=== PATIENT | male | born 1975 | race Two or more races ===

== ENCOUNTER 2020-04-08 12:21 | Inpatient (IN) | payer MEDICAID, OTHER ==
[~2020-04-08] VITALS: Ht 165.1 cm; Wt 108.5 kg
[2020-04-08] MEDS ORDERED: CLOPIDOGREL BISULFATE 75 MG TAB PO ONE (12:45)
[2020-04-08] MEDS ORDERED: HEPARIN SODIUM (PORCINE) 5000 UNITS/ML 1ML VIAL IV ONE (12:45)
[2020-04-08] MEDS ORDERED: IODIXANOL 320MG/ML 100ML BTL IV ONE (12:48)
[2020-04-08] MEDS ORDERED: HEPARIN IN NS 1000Units/500mL 1,500 ML ONE (12:48)
[2020-04-08] MEDS ORDERED: LIDOCAINE 2%HCL (LOCAL ANESTH.) INJ 20ML MDV ONE (12:49)
[2020-04-08] MEDS ORDERED: ANGIOMAX 250 MG VIAL IV ONE ×2 (12:50→13:53)
[2020-04-08] MEDS ORDERED: ADENOSINE 6 MG/2 ML INJ IV ONE (12:50)
[2020-04-08] MEDS ORDERED: niCARdipine 25 MG/10 ML VIAL IV ONE (12:50)
[2020-04-08] MEDS ORDERED: MIDAZOLAM HCL 1MG/1ML-2 ML VIAL ONE (12:50)
[2020-04-08] MEDS ORDERED: fentaNYL CITRATE 100 MCG/2 ML VL ONE (12:50)
[2020-04-08] MEDS ORDERED: SODIUM CHL 0.9% 50 ML ONE ×2 (12:51→13:53)
[2020-04-08 13:10] LABS: Basophils # (auto) 0.1 10 ^3/uL (0-0.2); Basophils % (auto) 0.5 % (0.0-2.0); Eosinophils # (auto) 0.1 10 ^3/uL (0-0.8); Eosinophils % (auto) 0.4 % (0.0-7.0); Hematocrit 43.7 % (41.0-53.0); Hemoglobin 14.6 g/dL (13.5-17.5); Lymphocytes # (auto) 2.1 10 ^3/uL (0.4-5.4); Lymphocytes % (auto) 14.7 % (10.0-50.0); Mean Corpuscular Hemoglobin 27.6 pg (28.0-32.0); Mean Corpuscular Hgb Conc. 33.4 g/dL (32.0-36.0); Mean Corpuscular Volume 82.8 fL (80.0-100.0); Monocytes # (auto) 0.8 10 ^3/uL (0-1.3); Monocytes % (auto) 5.4 % (0.0-12.0); Neutrophils # (auto) 11.5 10 ^3/uL (1.6-8.6); Platelet Count (auto) 308 10^3/uL (140-450); Red Blood Cells 5.28 10^6/uL (4.5-5.90); Red Cell Distribution Width 14.5 % (11.8-14.3); White Blood Cell 14.5 10^3/uL (4.4-10.8)
[2020-04-08] MEDS ORDERED: MORPHINE SULFATE 4 MG/ML SYR/VIAL ONE (13:18)
[2020-04-08] MEDS ORDERED: ONDANSETRON HCL 4 MG/2 ML VIAL ONE (13:18)
[2020-04-08] MEDS ORDERED: EPTIFIBATIDE INJ (2MG/ML) 10ML VIAL IV ONE (13:26)
[2020-04-08 13:28] LABS: Albumin 3.7 g/dL (3.4-5.0); Calcium 8.3 mg/dL (8.5-10.1); Magnesium 2.3 mg/dL (1.6-2.6)
[2020-04-08 13:29] LABS: INR 0.97 (0.9-1.15); Partial Thromboplastin Time 23.1 sec (23.0-31.2)
[2020-04-08] MEDS ORDERED: ATROPINE SULF 1 MG/10ml SYR ONE (13:29)
[2020-04-08] MEDS ORDERED: EPINEPHrine HCL 1 MG/10 ML SYRG ONE (13:29)
[2020-04-08 13:32] LABS: BUN/Creatinine Ratio 18.2; Bilirubin, Total 0.7 mg/dL (0.2-1.0); Total Protein 8.2 g/dL (6.4-8.2)
[2020-04-08] MEDS ORDERED: diphenhdrAMINE HCL 50 MG/1 ML VL ONE (13:35)
[2020-04-08] MEDS ORDERED: NOREPINEPHRINE 8 MG/250ML KIT 0 ML IV ONE (13:36)
[2020-04-08] MEDS ORDERED: CLOPIDOGREL 300 MG TAB ONE (13:48)
[2020-04-08] MEDS ORDERED: EPTIFIBATIDE DRIP(0.75MG/ML) 100 ML IV ONE (13:48)
[2020-04-08 13:50] LABS: Potassium 4.3 mmol/L (3.5-5.1)
[2020-04-08] MEDS: SODIUM CHLOR 0.9% PF (SALINE LOCK) 10ML VIAL/SYR IV SCH ×2 (14:00→22:10)
[2020-04-08] MEDS ORDERED: SOD CHL 0.45% 1,000 ML IV SCH (14:15)
[2020-04-08] MEDS ORDERED: MORPHINE SULF INJ 2 MG/ML SYRINGE 1ML IV PRN (14:30)
[2020-04-08] MEDS ORDERED: NITROGLYCERIN 0.4 MG SL TAB SL PRN (14:30)
[2020-04-08] MEDS ORDERED: HYDROcodone-ACET 5/325MG TAB PO PRN (14:30)
[2020-04-08] MEDS ORDERED: ONDANSETRON HCL 4 MG/2 ML VIAL IV PRN (14:30)
[2020-04-08] MEDS ORDERED: ACETAMINOPHEN 500 MG TAB PO PRN (14:30)
[2020-04-08] MEDS ORDERED: LABETALOL HCL 5 MG/ML 4ML SYRINGE IV PRN (15:15)
[2020-04-08] MEDS ORDERED: FAMOTIDINE 20 MG TAB PO ONE (15:15)
[2020-04-08] MEDS ORDERED: DEXTROSE (50%) 50ML SYRG IV PRN (15:15)
[2020-04-08] MEDS ORDERED: METOPROLOL TARTRATE 25 MG TAB PO ONE (15:15)
[2020-04-08] MEDS: EPTIFIBATIDE DRIP(0.75MG/ML) 100 ML IV SCH ×2 (15:30→20:02)
[2020-04-08] MEDS: ACCU-CHEK COMFORT CURVE STRIP VI SCH ×2 (17:00→22:14)
[2020-04-08] MEDS: InsuLIN REG 1unit/0.01ml Soln (100units/ml) SC SCH ×2 (17:00→22:15)
[2020-04-08 17:44] VITALS: BP 117/84
[2020-04-08 18:00] VITALS: BP 117/80
[2020-04-08 22:00] VITALS: BP 109/75
[2020-04-08] MEDS: ATORVASTATIN 20 MG TAB PO SCH (22:13)
[2020-04-08] MEDS: METOPROLOL TARTRATE 25 MG TAB PO SCH (22:14)
[2020-04-09] MEDS: EPTIFIBATIDE DRIP(0.75MG/ML) 100 ML IV SCH ×2 (01:59→10:15)
[2020-04-09 05:00] VITALS: BP 115/73
[2020-04-09 05:11] LABS: Basophils # (auto) 0 10 ^3/uL (0-0.2); Basophils % (auto) 0.3 % (0.0-2.0); Eosinophils # (auto) 0 10 ^3/uL (0-0.8); Eosinophils % (auto) 0.1 % (0.0-7.0); Hematocrit 42.1 % (41.0-53.0); Hemoglobin 14.4 g/dL (13.5-17.5); Lymphocytes # (auto) 1.7 10 ^3/uL (0.4-5.4); Mean Corpuscular Hemoglobin 28.4 pg (28.0-32.0); Mean Corpuscular Hgb Conc. 34.3 g/dL (32.0-36.0); Mean Corpuscular Volume 82.8 fL (80.0-100.0); Monocytes # (auto) 0.9 10 ^3/uL (0-1.3); Monocytes % (auto) 8.1 % (0.0-12.0); Neutrophils # (auto) 8.5 10 ^3/uL (1.6-8.6); Neutrophils % (auto) 76.5 % (37.0-80.0); Nucleated Red Blood Cells % 0.1 %; Platelet Count (auto) 291 10^3/uL (140-450); Red Blood Cells 5.08 10^6/uL (4.5-5.90); Red Cell Distribution Width 14.4 % (11.8-14.3); White Blood Cell 11.1 10^3/uL (4.4-10.8)
[2020-04-09] MEDS: SODIUM CHLOR 0.9% PF (SALINE LOCK) 10ML VIAL/SYR IV SCH ×3 (05:26→22:39)
[2020-04-09 05:34] LABS: Albumin 3.4 g/dL (3.4-5.0); Anion Gap 4 (5-15); Blood Urea Nitrogen 22 mg/dL (7-18); Calcium 7.9 mg/dL (8.5-10.1); Carbon Dioxide 26 mmol/L (21-32); Chloride 104 mmol/L (98-107); Glucose 134 mg/dL (74-106); Potassium 4.6 mmol/L (3.5-5.1); Sodium 134 mmol/L (136-145)
[2020-04-09 05:56] LABS: Alanine Aminotransferase 135 U/L (16-61); Alkaline Phosphatase 93 U/L (45-117); Aspartate Aminotransferase 650 U/L (15-37); BUN/Creatinine Ratio 25.3; Bilirubin, Total 1.2 mg/dL (0.2-1.0); GFR African American 121 mL/min; GFR Non-African American 100 mL/min; Total Protein 7.5 g/dL (6.4-8.2)
[2020-04-09] MEDS: ACCU-CHEK COMFORT CURVE STRIP VI SCH ×4 (06:53→22:39)
[2020-04-09] MEDS: InsuLIN REG 1unit/0.01ml Soln (100units/ml) SC SCH ×3 (06:54→22:00)
[2020-04-09 08:12] VITALS: BP 114/79
[2020-04-09 08:19] VITALS: BP 114/79
[2020-04-09] MEDS: METOPROLOL TARTRATE 25 MG TAB PO SCH ×2 (09:59→22:39)
[2020-04-09] MEDS: FAMOTIDINE 20 MG TAB PO SCH (10:00)
[2020-04-09] MEDS: CLOPIDOGREL BISULFATE 75 MG TAB PO SCH (10:02)
[2020-04-09] MEDS: LISINOPRIL 10 MG TAB PO SCH (10:03)
[2020-04-09 16:00] VITALS: BP 103/70
[2020-04-09 22:00] VITALS: BP 110/65
[2020-04-09] MEDS: ATORVASTATIN 20 MG TAB PO SCH (22:39)
[2020-04-10 05:00] VITALS: BP 93/53
[2020-04-10 05:53] LABS: Basophils # (auto) 0.1 10 ^3/uL (0-0.2); Basophils % (auto) 0.7 % (0.0-2.0); Eosinophils # (auto) 0.1 10 ^3/uL (0-0.8); Eosinophils % (auto) 0.8 % (0.0-7.0); Hemoglobin 14.1 g/dL (13.5-17.5); Lymphocytes # (auto) 2.8 10 ^3/uL (0.4-5.4); Lymphocytes % (auto) 23.4 % (10.0-50.0); Mean Corpuscular Hemoglobin 27.8 pg (28.0-32.0); Mean Corpuscular Hgb Conc. 33.5 g/dL (32.0-36.0); Monocytes # (auto) 1.2 10 ^3/uL (0-1.3); Neutrophils # (auto) 7.7 10 ^3/uL (1.6-8.6); Neutrophils % (auto) 65.1 % (37.0-80.0); Platelet Count (auto) 265 10^3/uL (140-450); Red Blood Cells 5.06 10^6/uL (4.5-5.90); Red Cell Distribution Width 14.5 % (11.8-14.3); White Blood Cell 11.9 10^3/uL (4.4-10.8)
[2020-04-10 06:29] LABS: Potassium 4.2 mmol/L (3.5-5.1)
[2020-04-10 06:38] LABS: Albumin 3.4 g/dL (3.4-5.0); BUN/Creatinine Ratio 23.3; Bilirubin, Total 1.4 mg/dL (0.2-1.0); Total Protein 7.4 g/dL (6.4-8.2)
[2020-04-10] MEDS: InsuLIN REG 1unit/0.01ml Soln (100units/ml) SC SCH ×4 (07:00→22:00)
[2020-04-10] MEDS: SODIUM CHLOR 0.9% PF (SALINE LOCK) 10ML VIAL/SYR IV SCH ×3 (07:03→22:59)
[2020-04-10] MEDS: ACCU-CHEK COMFORT CURVE STRIP VI SCH ×4 (07:03→23:00)
[2020-04-10] MEDS ORDERED: IODIXANOL 320MG/ML 100ML BTL IV ONE (07:48)
[2020-04-10] MEDS ORDERED: LIDOCAINE 2%HCL (LOCAL ANESTH.) INJ 20ML MDV ONE (07:48)
[2020-04-10 08:00] VITALS: BP 98/70
[2020-04-10] MEDS ORDERED: ANGIOMAX 250 MG VIAL IV ONE (08:32)
[2020-04-10] MEDS ORDERED: SODIUM CHL 0.9% 50 ML ONE (08:33)
[2020-04-10] MEDS ORDERED: fentaNYL CITRATE 100 MCG/2 ML VL ONE (08:33)
[2020-04-10] MEDS ORDERED: MIDAZOLAM HCL 1MG/1ML-2 ML VIAL ONE (08:33)
[2020-04-10] MEDS ORDERED: diphenhdrAMINE HCL 50 MG/1 ML VL ONE (08:51)
[2020-04-10] MEDS ORDERED: ADENOSINE 6 MG/2 ML INJ IV ONE (09:08)
[2020-04-10] MEDS ORDERED: niCARdipine 25 MG/10 ML VIAL IV ONE (09:08)
[2020-04-10] MEDS ORDERED: EPTIFIBATIDE INJ (2MG/ML) 10ML VIAL IV ONE (09:22)
[2020-04-10] MEDS ORDERED: CLOPIDOGREL BISULFATE 75 MG TAB ONE (09:44)
[2020-04-10] MEDS ORDERED: ASPirin 81 mg TAB ONE (09:44)
[2020-04-10] MEDS: ASPirin 81 mg TAB PO SCH (09:48)
[2020-04-10] MEDS: CLOPIDOGREL BISULFATE 75 MG TAB PO SCH (09:48)
[2020-04-10] MEDS: LISINOPRIL 10 MG TAB PO SCH (10:00)
[2020-04-10] MEDS: FAMOTIDINE 20 MG TAB PO SCH (10:00)
[2020-04-10] MEDS: SODIUM CHLORIDE 0.9% 1,000 ML IV SCH (10:15)
[2020-04-10 12:25] LABS: Hematocrit 42.3 % (41.0-53.0); Hemoglobin 14.4 g/dL (13.5-17.5)
[2020-04-10 16:00] VITALS: BP 97/70
[2020-04-10 17:03] VITALS: BP 97/70
[2020-04-10] MEDS: METOPROLOL TARTRATE 25 MG TAB PO SCH (22:59)
[2020-04-10] MEDS: ATORVASTATIN 20 MG TAB PO SCH (22:59)
[2020-04-11] VITALS: BP 104/70
[2020-04-11] MEDS: SODIUM CHLORIDE 0.9% 1,000 ML IV SCH (00:33)
[2020-04-11 05:41] LABS: Basophils # (auto) 0.1 10 ^3/uL (0-0.2); Basophils % (auto) 0.7 % (0.0-2.0); Eosinophils # (auto) 0.1 10 ^3/uL (0-0.8); Eosinophils % (auto) 0.9 % (0.0-7.0); Hematocrit 42.2 % (41.0-53.0); Hemoglobin 14.3 g/dL (13.5-17.5); Lymphocytes # (auto) 2.9 10 ^3/uL (0.4-5.4); Mean Corpuscular Hemoglobin 28.4 pg (28.0-32.0); Mean Corpuscular Hgb Conc. 33.9 g/dL (32.0-36.0); Mean Corpuscular Volume 83.6 fL (80.0-100.0); Monocytes # (auto) 1.1 10 ^3/uL (0-1.3); Monocytes % (auto) 9.5 % (0.0-12.0); Neutrophils # (auto) 7.1 10 ^3/uL (1.6-8.6); Neutrophils % (auto) 62.9 % (37.0-80.0); Nucleated Red Blood Cells % 0.1 %; Platelet Count (auto) 280 10^3/uL (140-450); Red Blood Cells 5.05 10^6/uL (4.5-5.90); Red Cell Distribution Width 14.5 % (11.8-14.3); White Blood Cell 11.3 10^3/uL (4.4-10.8)
[2020-04-11 06:00] LABS: Potassium 4.1 mmol/L (3.5-5.1)
[2020-04-11 06:02] LABS: BUN/Creatinine Ratio 23.9
[2020-04-11] MEDS: ACCU-CHEK COMFORT CURVE STRIP VI SCH (06:20)
[2020-04-11] MEDS: InsuLIN REG 1unit/0.01ml Soln (100units/ml) SC SCH (06:20)
[2020-04-11] MEDS: SODIUM CHLOR 0.9% PF (SALINE LOCK) 10ML VIAL/SYR IV SCH ×3 (06:21→23:49)
[2020-04-11 08:00] VITALS: BP 119/80
[2020-04-11] MEDS: METOPROLOL TARTRATE 25 MG TAB PO SCH ×3 (09:27→23:53)
[2020-04-11] MEDS: ASPirin 81 mg TAB PO SCH (09:27)
[2020-04-11] MEDS: LISINOPRIL 10 MG TAB PO SCH (09:28)
[2020-04-11] MEDS: FAMOTIDINE 20 MG TAB PO SCH (09:28)
[2020-04-11] MEDS: CLOPIDOGREL BISULFATE 75 MG TAB PO SCH (09:28)
[2020-04-11 16:00] VITALS: BP 105/62
[2020-04-11 22:00] VITALS: BP 101/68
[2020-04-11] MEDS: ATORVASTATIN 20 MG TAB PO SCH (23:49)
[2020-04-12 05:00] VITALS: BP 97/67
[2020-04-12 08:00] VITALS: BP 106/79
[2020-04-12] MEDS: SODIUM CHLOR 0.9% PF (SALINE LOCK) 10ML VIAL/SYR IV SCH ×3 (08:12→21:24)
[2020-04-12] MEDS: ASPirin 81 mg TAB PO SCH (10:00)
[2020-04-12] MEDS: CLOPIDOGREL BISULFATE 75 MG TAB PO SCH (10:00)
[2020-04-12] MEDS: METOPROLOL TARTRATE 25 MG TAB PO SCH ×2 (10:00→21:24)
[2020-04-12] MEDS: FAMOTIDINE 20 MG TAB PO SCH (10:00)
[2020-04-12] MEDS: LISINOPRIL 10 MG TAB PO SCH (11:14)
[2020-04-12 16:00] VITALS: BP 104/73
[2020-04-12] MEDS: ATORVASTATIN 20 MG TAB PO SCH (21:24)
[2020-04-12 23:44] VITALS: BP 107/75
[2020-04-13 05:40] VITALS: BP 99/64
[2020-04-13] MEDS: SODIUM CHLOR 0.9% PF (SALINE LOCK) 10ML VIAL/SYR IV SCH (06:08)
[2020-04-13] MEDS ORDERED: IODIXANOL 320MG/ML 100ML BTL IV ONE (07:23)
[2020-04-13] MEDS ORDERED: LIDOCAINE 2%HCL (LOCAL ANESTH.) INJ 20ML MDV ONE (07:24)
== END 2020-04-13 07:45 | disposition left against medical advice (07) | DRG 174 ==
LOC: ER 12:21 → EDBD 12:21 → CATH 1 12:46 → TELE-CENTR 12:47
PROVIDERS: ADMIT Specialist; ATTEND Internal Medicine
PROC: 4A023N7 Measurement of Cardiac Sampling and Pressure, Left Heart, Percutaneous Approach (ICD-10-PCS; principal; 2020-04-08)
PROC: B2111ZZ Fluoroscopy of Multiple Coronary Arteries using Low Osmolar Contrast (ICD-10-PCS; 2020-04-08)
PROC: B2151ZZ Fluoroscopy of Left Heart using Low Osmolar Contrast (ICD-10-PCS; 2020-04-08)
PROC: B41F1ZZ Fluoroscopy of Right Lower Extremity Arteries using Low Osmolar Contrast (ICD-10-PCS; 2020-04-08)
PROC: B2101ZZ Fluoroscopy of Single Coronary Artery using Low Osmolar Contrast (ICD-10-PCS; 2020-04-08)
PROC: 02C03ZZ Extirpation of Matter from Coronary Artery, One Artery, Percutaneous Approach (ICD-10-PCS; 2020-04-08)
PROC: 027034Z Dilation of Coronary Artery, One Artery with Drug-eluting Intraluminal Device, Percutaneous Approach (ICD-10-PCS; 2020-04-08)
PROC: B41F1ZZ Fluoroscopy of Right Lower Extremity Arteries using Low Osmolar Contrast (ICD-10-PCS; 2020-04-10)
PROC: 027034Z Dilation of Coronary Artery, One Artery with Drug-eluting Intraluminal Device, Percutaneous Approach (ICD-10-PCS; 2020-04-10)
PROC: 02703ZZ Dilation of Coronary Artery, One Artery, Percutaneous Approach (ICD-10-PCS; 2020-04-10)
PROC: B2101ZZ Fluoroscopy of Single Coronary Artery using Low Osmolar Contrast (ICD-10-PCS; 2020-04-10)
PROC: B240ZZ3 Ultrasonography of Single Coronary Artery, Intravascular (ICD-10-PCS; 2020-04-10)
DX: I21.19 ST elevation (STEMI) myocardial infarction involving other coronary artery of inferior wall (principal); I10 Essential (primary) hypertension; E78.5 Hyperlipidemia, unspecified; E66.01 Morbid (severe) obesity due to excess calories; G47.30 Sleep apnea, unspecified; E87.1 Hypo-osmolality and hyponatremia; Z20.822 Contact with and (suspected) exposure to COVID-19; R73.9 Hyperglycemia, unspecified; Z68.39 Body mass index [BMI] 39.0-39.9, adult; Z91.19 Patient's noncompliance with other medical treatment and regimen; R65.11 Systemic inflammatory response syndrome (SIRS) of non-infectious origin with acute organ dysfunction
CPT/HCPCS: 36415; 71045; 75710; 80048; 80053; 80061; 82962; 83036; 83735; 84443; 84484; 85014; 85018; 85025; 85610; 85730; 87426; 92920; 92928; 92973; 92978; 93005; 93306; 93454; 93458; 96365; 99152; 99153; 99291; C1874; G0378; J0153; J1815; J2250; J2405; Q9967

== ENCOUNTER 2021-12-05 20:13 | Inpatient (IN) | payer OTHER ==
[~2021-12-05] VITALS: Ht 165.1 cm; Wt 114.2 kg
[2021-12-05 22:02] LABS: Basophils # (auto) 0.1 10 ^3/uL (0-0.2); Eosinophils # (auto) 0.1 10 ^3/uL (0-0.8); Eosinophils % (auto) 1.5 % (0.0-7.0); Hematocrit 45.6 % (41.0-53.0); Hemoglobin 15.2 g/dL (13.5-17.5); Lymphocytes # (auto) 2.5 10 ^3/uL (0.4-5.4); Lymphocytes % (auto) 25.1 % (10.0-50.0); Mean Corpuscular Hemoglobin 27.7 pg (28.0-32.0); Mean Corpuscular Hgb Conc. 33.3 g/dL (32.0-36.0); Mean Corpuscular Volume 83.2 fL (80.0-100.0); Monocytes # (auto) 0.7 10 ^3/uL (0-1.3); Monocytes % (auto) 6.8 % (0.0-12.0); Neutrophils # (auto) 6.6 10 ^3/uL (1.6-8.6); Neutrophils % (auto) 65.6 % (37.0-80.0); Red Blood Cells 5.48 10^6/uL (4.5-5.90); Red Cell Distribution Width 15.3 % (11.8-14.3)
[2021-12-05 22:17] LABS: Albumin 3.5 g/dL (3.4-5.0); BUN/Creatinine Ratio 24.3; Calcium 7.9 mg/dL (8.5-10.1); Magnesium 1.9 mg/dL (1.6-2.6); Potassium 3.9 mmol/L (3.5-5.1)
[2021-12-05 22:19] LABS: Bilirubin, Total 1.3 mg/dL (0.2-1.0); Total Protein 6.9 g/dL (6.4-8.2)
[2021-12-05 22:30] LABS: INR 1.04 (0.9-1.15); Partial Thromboplastin Time 27.5 sec (24.6-33.4)
[2021-12-05] MEDS ORDERED: ASPirin 325 MG TAB PO ONE (22:45)
[2021-12-05] MEDS ORDERED: HEPARIN SODIUM (PORCINE) 5000 UNITS/ML 1ML VIAL IV ONE (22:45)
[2021-12-05] MEDS ORDERED: CLOPIDOGREL BISULFATE 75 MG TAB PO ONE (22:45)
[2021-12-05] MEDS ORDERED: ENOXAPARIN SOD 100 MG/1 ML SYRINGE SC ONE (23:00)
[2021-12-05] MEDS ORDERED: NITROGLYCERIN 0.4 MG SL TAB SL PRN (23:15)
[2021-12-05] MEDS ORDERED: LABETALOL HCL 5 MG/ML 4ML SYRINGE IV PRN (23:15)
[2021-12-05] MEDS ORDERED: FUROSEMIDE 20 MG/2 ML VIAL IV ONE (23:15)
[2021-12-05] MEDS ORDERED: ONDANSETRON HCL 4 MG/2 ML VIAL IV PRN (23:15)
[2021-12-05] MEDS ORDERED: TEMAZEPAM 15 MG CAP PO PRN (23:15)
[2021-12-05] MEDS ORDERED: MORPHINE SULFATE INJ 2 MG/ml SYRG IV PRN (23:15)
[2021-12-05] MEDS ORDERED: CLOPIDOGREL BISULFATE 75 MG TAB ONE (23:26)
[2021-12-06] MEDS ORDERED: LORazepam 2MG/ML-1ML VIAL IV ONE ×2 (02:00→03:15)
[2021-12-06 04:23] LABS: Basophils # (auto) 0.1 10 ^3/uL (0-0.2); Basophils % (auto) 1.1 % (0.0-2.0); Eosinophils # (auto) 0.1 10 ^3/uL (0-0.8); Eosinophils % (auto) 0.9 % (0.0-7.0); Hematocrit 46.2 % (41.0-53.0); Hemoglobin 15.2 g/dL (13.5-17.5); Lymphocytes # (auto) 3.6 10 ^3/uL (0.4-5.4); Lymphocytes % (auto) 30.5 % (10.0-50.0); Mean Corpuscular Hemoglobin 27.2 pg (28.0-32.0); Mean Corpuscular Hgb Conc. 32.9 g/dL (32.0-36.0); Mean Corpuscular Volume 82.8 fL (80.0-100.0); Monocytes # (auto) 0.8 10 ^3/uL (0-1.3); Neutrophils # (auto) 7.1 10 ^3/uL (1.6-8.6); Neutrophils % (auto) 60.5 % (37.0-80.0); Nucleated Red Blood Cells % 0.1 %; Red Blood Cells 5.59 10^6/uL (4.5-5.90); Red Cell Distribution Width 15.1 % (11.8-14.3); White Blood Cell 11.7 10^3/uL (4.4-10.8)
[2021-12-06] MEDS ORDERED: diazePAM 5 MG TAB PO ONE (04:30)
[2021-12-06 04:39] LABS: Calcium 8.3 mg/dL (8.5-10.1); Potassium 3.8 mmol/L (3.5-5.1)
[2021-12-06 04:42] LABS: Albumin 3.5 g/dL (3.4-5.0); BUN/Creatinine Ratio 20.3
[2021-12-06 04:45] LABS: Bilirubin, Total 1.7 mg/dL (0.2-1.0); Total Protein 7.1 g/dL (6.4-8.2)
[2021-12-06 09:05] LABS: Urine Bacteria NONE SEEN /hpf (None Seen); Urine Blood Negative /uL (Negative); Urine Specific Gravity 1.018 (1.001-1.035); Urine WBC 7 /hpf (0 - 3)
[2021-12-06 09:58] LABS: Alcohol, Urine < 3.0 mg/dL (0-10); Amphetamine Screen, Urine NEGATIVE (NEGATIVE); Barbiturate Scree,Urine NEGATIVE (NEGATIVE); Benzodiazephine Screen, Urine POSITIVE (NEGATIVE); Cannabinoid Screen, Urine NEGATIVE (NEGATIVE); Cocaine Screen, Urine NEGATIVE (NEGATIVE); Opiate Scree,Urine NEGATIVE (NEGATIVE)
[2021-12-06 10:06] LABS: Phencyclidine Screen, Urine NEGATIVE (NEGATIVE)
[2021-12-06] MEDS: ASPirin 81 mg TAB PO SCH (10:26)
[2021-12-06] MEDS: METOPROLOL TARTRATE 25 MG TAB PO SCH ×2 (10:27→22:01)
[2021-12-06] MEDS: PANTOPRAZOLE 40 MG TAB PO SCH (10:27)
[2021-12-06] MEDS: LISINOPRIL 10 MG TAB PO SCH (10:28)
[2021-12-06] MEDS ORDERED: FUROSEMIDE 40 MG/4 ML VIAL IV ONE (10:30)
[2021-12-06] MEDS: CLOPIDOGREL BISULFATE 75 MG TAB PO SCH (10:56)
[2021-12-06 11:34] LABS: Cholesterol 139 mg/dL (< 200); Triglycerides 123 mg/dL (< 150)
[2021-12-06 11:36] LABS: HDL Cholesterol 30 mg/dL (40-59); LDL Cholesterol 104 mg/dL (< 100)
[2021-12-06] MEDS: FUROSEMIDE 40 MG/4 ML VIAL IV SCH (19:13)
[2021-12-06 21:49] VITALS: BP 122/87
[2021-12-06] MEDS: ATORVASTATIN 20 MG TAB PO SCH (22:01)
[2021-12-06] MEDS ORDERED: CLOP75TA70 PO (22:47)
[2021-12-06] MEDS ORDERED: LISI2.5T47 PO (22:47)
[2021-12-06] MEDS ORDERED: PANT40TA2 PO (22:47)
[2021-12-06] MEDS ORDERED: ASPI1TAB20 PO (22:47)
[2021-12-07 05:00] VITALS: BP 98/62
[2021-12-07 05:58] LABS: Basophils # (auto) 0.1 10 ^3/uL (0-0.2); Basophils % (auto) 0.7 % (0.0-2.0); Eosinophils # (auto) 0.1 10 ^3/uL (0-0.8); Eosinophils % (auto) 1.3 % (0.0-7.0); Hemoglobin 15.6 g/dL (13.5-17.5); Lymphocytes # (auto) 2.9 10 ^3/uL (0.4-5.4); Mean Corpuscular Hemoglobin 27.1 pg (28.0-32.0); Mean Corpuscular Hgb Conc. 32.5 g/dL (32.0-36.0); Mean Corpuscular Volume 83.3 fL (80.0-100.0); Monocytes # (auto) 1.1 10 ^3/uL (0-1.3); Monocytes % (auto) 9.7 % (0.0-12.0); Neutrophils # (auto) 6.9 10 ^3/uL (1.6-8.6); Neutrophils % (auto) 62.3 % (37.0-80.0); Nucleated Red Blood Cells % 0.1 %; Red Blood Cells 5.76 10^6/uL (4.5-5.90); Red Cell Distribution Width 15.3 % (11.8-14.3); White Blood Cell 11.2 10^3/uL (4.4-10.8)
[2021-12-07] MEDS: FUROSEMIDE 40 MG/4 ML VIAL IV SCH (06:00)
[2021-12-07 06:15] LABS: BUN/Creatinine Ratio 17.4; Calcium 8.4 mg/dL (8.5-10.1); Potassium 3.6 mmol/L (3.5-5.1)
[2021-12-07 09:00] VITALS: BP 99/68
[2021-12-07] MEDS: PANTOPRAZOLE 40 MG TAB PO SCH (09:31)
[2021-12-07] MEDS: CLOPIDOGREL BISULFATE 75 MG TAB PO SCH (09:31)
[2021-12-07] MEDS: ASPirin 81 mg TAB PO SCH (09:31)
[2021-12-07] MEDS: METOPROLOL TARTRATE 25 MG TAB PO SCH ×2 (09:32→22:42)
[2021-12-07] MEDS: ENOXAPARIN SOD 40 MG/0.4 ML SYRINGE SC SCH (09:36)
[2021-12-07] MEDS: LISINOPRIL 10 MG TAB PO SCH (09:38)
[2021-12-07 12:05] VITALS: BP 87/59
[2021-12-07 13:00] VITALS: BP 86/39
[2021-12-07] MEDS ORDERED: NITR0.4S29 SL (14:54)
[2021-12-07] MEDS ORDERED: METO25TA5 PO (14:54)
[2021-12-07] MEDS ORDERED: LISI-275 PO (14:54)
[2021-12-07 17:00] VITALS: BP 117/90
[2021-12-07] MEDS: FUROSEMIDE 20 MG/2 ML VIAL IV SCH (17:07)
[2021-12-07 22:00] VITALS: BP 109/81
[2021-12-07] MEDS: ATORVASTATIN 20 MG TAB PO SCH (22:42)
[2021-12-08 05:00] VITALS: BP 99/73
[2021-12-08] MEDS: FUROSEMIDE 20 MG/2 ML VIAL IV SCH ×2 (05:34→17:04)
[2021-12-08 05:59] LABS: INR 1.08 (0.9-1.15); Partial Thromboplastin Time 25.8 sec (24.6-33.4)
[2021-12-08 06:08] LABS: BUN/Creatinine Ratio 21.8; Calcium 8.4 mg/dL (8.5-10.1); Potassium 3.7 mmol/L (3.5-5.1)
[2021-12-08 06:45] LABS: Basophils # (auto) 0.1 10 ^3/uL (0-0.2); Basophils % (auto) 0.7 % (0.0-2.0); Eosinophils # (auto) 0.2 10 ^3/uL (0-0.8); Eosinophils % (auto) 1.6 % (0.0-7.0); Hemoglobin 16.8 g/dL (13.5-17.5); Lymphocytes # (auto) 3.1 10 ^3/uL (0.4-5.4); Lymphocytes % (auto) 28.9 % (10.0-50.0); Mean Corpuscular Hgb Conc. 33.6 g/dL (32.0-36.0); Mean Corpuscular Volume 83.5 fL (80.0-100.0); Monocytes % (auto) 8.9 % (0.0-12.0); Neutrophils # (auto) 6.5 10 ^3/uL (1.6-8.6); Neutrophils % (auto) 59.9 % (37.0-80.0); Nucleated Red Blood Cells % 0.1 %; Red Blood Cells 5.99 10^6/uL (4.5-5.90); Red Cell Distribution Width 15.3 % (11.8-14.3); White Blood Cell 10.8 10^3/uL (4.4-10.8)
[2021-12-08 09:02] VITALS: BP 119/86
[2021-12-08] MEDS: PANTOPRAZOLE 40 MG TAB PO SCH (10:00)
[2021-12-08] MEDS ORDERED: SACUBITRIL-VALSARTAN 24mg/26mg TAB PO SCH (10:00)
[2021-12-08] MEDS: CLOPIDOGREL BISULFATE 75 MG TAB PO SCH (10:00)
[2021-12-08] MEDS: METOPROLOL TARTRATE 25 MG TAB PO SCH ×2 (10:00→22:37)
[2021-12-08] MEDS: ENOXAPARIN SOD 40 MG/0.4 ML SYRINGE SC SCH (10:00)
[2021-12-08] MEDS: ASPirin 81 mg TAB PO SCH (10:00)
[2021-12-08] MEDS: DAPAGLIFLOZIN 5 MG TAB PO SCH (10:00)
[2021-12-08] MEDS ORDERED: ANGIOMAX 250 MG VIAL IV ONE ×2 (11:13→12:15)
[2021-12-08] MEDS ORDERED: HEPARIN SODIUM (PORCINE) 5000 UNITS/ML 1ML VIAL ONE (11:13)
[2021-12-08] MEDS ORDERED: fentaNYL CITRATE 100 MCG/2 ML VL ONE ×2 (11:14→12:20)
[2021-12-08] MEDS ORDERED: SODIUM CHL 0.9% 0 ML ONE (11:14)
[2021-12-08] MEDS ORDERED: VERAPAMIL 2.5MG/ML INJ 2ML VIAL IV ONE (11:14)
[2021-12-08] MEDS ORDERED: LIDOCAINE 2%HCL (LOCAL ANESTH.) INJ 20ML MDV ONE (11:14)
[2021-12-08] MEDS ORDERED: MIDAZOLAM HCL 2MG/2ML 2ml VIAL (1mg/ml) ONE ×3 (11:14→12:23)
[2021-12-08] MEDS ORDERED: IODIXANOL 320MG/ML 100ML BTL IV ONE ×2 (11:14→12:07)
[2021-12-08] MEDS ORDERED: SODIUM CHL 0.9% 50 ML ONE (12:15)
[2021-12-08] MEDS ORDERED: CLOPIDOGREL 300 MG TAB ONE (12:30)
[2021-12-08] MEDS ORDERED: ASPirin 325 MG TAB ONE (12:31)
[2021-12-08 16:58] VITALS: BP 138/102
[2021-12-08] MEDS: ACETAMINOPHEN 325 MG TAB PO PRN (17:03)
[2021-12-08 22:00] VITALS: BP 168/97
[2021-12-08] MEDS: SACUBITRIL-VALSARTAN 24mg/26mg TAB PO SCH (22:36)
[2021-12-08] MEDS: ATORVASTATIN 20 MG TAB PO SCH (22:36)
[2021-12-09] MEDS: ACETAMINOPHEN 325 MG TAB PO PRN (00:15)
[2021-12-09 05:00] VITALS: BP 98/62
[2021-12-09] MEDS: FUROSEMIDE 20 MG/2 ML VIAL IV SCH (05:20)
[2021-12-09 07:06] LABS: Basophils # (auto) 0 10 ^3/uL (0-0.2); Eosinophils # (auto) 0 10 ^3/uL (0-0.8); Eosinophils % (auto) 0.1 % (0.0-7.0); Nucleated Red Blood Cells % 0.1 %
[2021-12-09 07:08] LABS: Basophils % (auto) 0.5 % (0.0-2.0); Hematocrit 51.4 % (41.0-53.0); Hemoglobin 17.1 g/dL (13.5-17.5); Lymphocytes # (auto) 0.9 10 ^3/uL (0.4-5.4); Lymphocytes % (auto) 10.9 % (10.0-50.0); Mean Corpuscular Hemoglobin 27.4 pg (28.0-32.0); Mean Corpuscular Hgb Conc. 33.3 g/dL (32.0-36.0); Mean Corpuscular Volume 82.3 fL (80.0-100.0); Monocytes % (auto) 11.5 % (0.0-12.0); Neutrophils # (auto) 6.5 10 ^3/uL (1.6-8.6); Red Blood Cells 6.25 10^6/uL (4.5-5.90); White Blood Cell 8.4 10^3/uL (4.4-10.8)
[2021-12-09 07:46] LABS: Calcium 8.3 mg/dL (8.5-10.1); Potassium 3.5 mmol/L (3.5-5.1)
[2021-12-09 09:00] VITALS: BP 123/78
[2021-12-09] MEDS: CLOPIDOGREL BISULFATE 75 MG TAB PO SCH (11:01)
[2021-12-09] MEDS: PANTOPRAZOLE 40 MG TAB PO SCH (11:01)
[2021-12-09] MEDS: ASPirin 81 mg TAB PO SCH (11:02)
[2021-12-09] MEDS: ENOXAPARIN SOD 40 MG/0.4 ML SYRINGE SC SCH (11:02)
[2021-12-09] MEDS: SACUBITRIL-VALSARTAN 24mg/26mg TAB PO SCH (11:03)
[2021-12-09] MEDS: METOPROLOL TARTRATE 25 MG TAB PO SCH (11:03)
[2021-12-09] MEDS: DAPAGLIFLOZIN 5 MG TAB PO SCH (11:11)
[2021-12-09] MEDS ORDERED: METO25TA5 PO (11:48)
[2021-12-09] MEDS ORDERED: CLOP75TA70 PO (11:48)
[2021-12-09] MEDS ORDERED: PANT40TA2 PO (11:48)
[2021-12-09] MEDS ORDERED: ASPI1TAB20 PO (11:48)
[2021-12-09] MEDS ORDERED: LISI-275 PO (11:48)
[2021-12-09] MEDS ORDERED: DAPA1TAB4 PO (11:49)
[2021-12-09 13:00] VITALS: BP 121/82
[2021-12-09] MEDS ORDERED: ATOR20TA50 PO (15:34)
[2021-12-09 16:56] VITALS: BP 121/84
== END 2021-12-09 16:40 | disposition home or self-care (01) | DRG 175 ==
LOC: EDUNIT# 20:13 → EDBD 20:13 → ER 20:15 → TELE 23:13 → TELE-WESTW 12-06 20:13
PROVIDERS: ADMIT Nurse Practitioner; ATTEND Internal Medicine Pulmonary Disease
PROC: 027136Z Dilation of Coronary Artery, Two Arteries with Three Drug-eluting Intraluminal Devices, Percutaneous Approach (ICD-10-PCS; principal; 2021-12-08)
PROC: B240ZZ3 Ultrasonography of Single Coronary Artery, Intravascular (ICD-10-PCS; 2021-12-08)
PROC: 4A023N7 Measurement of Cardiac Sampling and Pressure, Left Heart, Percutaneous Approach (ICD-10-PCS; 2021-12-08)
PROC: B211YZZ Fluoroscopy of Multiple Coronary Arteries using Other Contrast (ICD-10-PCS; 2021-12-08)
PROC: B215YZZ Fluoroscopy of Left Heart using Other Contrast (ICD-10-PCS; 2021-12-08)
DX: I11.0 Hypertensive heart disease with heart failure (principal); I21.A1 Myocardial infarction type 2; R65.10 Systemic inflammatory response syndrome (SIRS) of non-infectious origin without acute organ dysfunction; I50.23 Acute on chronic systolic (congestive) heart failure; I25.10 Atherosclerotic heart disease of native coronary artery without angina pectoris; E66.9 Obesity, unspecified; R09.89 Other specified symptoms and signs involving the circulatory and respiratory systems; Z20.822 Contact with and (suspected) exposure to COVID-19; I25.2 Old myocardial infarction; Z91.19 Patient's noncompliance with other medical treatment and regimen; Z68.41 Body mass index [BMI] 40.0-44.9, adult; Z83.3 Family history of diabetes mellitus; Z84.1 Family history of disorders of kidney and ureter
CPT/HCPCS: 36415; 71045; 80048; 80053; 80061; 80307; 81001; 83036; 83735; 83880; 84443; 84484; 85025; 85379; 85610; 85730; 92928; 92929; 92978; 93005; 93306; 93458; 96372; 96374; 96375; 96376; 99152; 99153; 99291; C1874; G0378; J2250; Q9967

== ENCOUNTER 2022-06-01 10:44 | Emergency (ER) | payer OTHER ==
[~2022-06-01] VITALS: Ht 165.1 cm; Wt 99.0 kg
[~2022-06-01 10:44] MED LIST: ASPI1TAB20 PO; ATOR20TA50 PO; CLOP75TA70 PO; DAPA1TAB4 PO; LISI-275 PO; METO25TA5 PO; NITR0.4S29 SL; PANT40TA2 PO
[2022-06-01] MEDS ORDERED: LIDOCAINE 1% HCL (LOCAL ANESTH.) INJ 20ML MDV ID ONE (15:30)
[2022-06-01] MEDS ORDERED: CEPH-510 PO (15:33)
[2022-06-01] MEDS ORDERED: ACET-1158 PO (15:33)
[2022-06-01 16:47] VITALS: BP 104/79
== END 2022-06-01 16:46 | disposition home or self-care (01) ==
LOC: ER 10:44
DX: S61.213A Laceration without foreign body of left middle finger without damage to nail, initial encounter (principal); I10 Essential (primary) hypertension; I25.2 Old myocardial infarction; Z79.82 Long term (current) use of aspirin; Z79.01 Long term (current) use of anticoagulants; Z79.899 Other long term (current) drug therapy; W23.0XXA Caught, crushed, jammed, or pinched between moving objects, initial encounter; Y93.89 Activity, other specified; Y92.89 Other specified places as the place of occurrence of the external cause; Y99.8 Other external cause status
CPT/HCPCS: 12001; 99283; J2001

== ENCOUNTER 2022-07-29 14:37 | Inpatient (IN) | payer MEDICAID, OTHER ==
[~2022-07-29] VITALS: Ht 165.1 cm; Wt 100.0 kg
[~2022-07-29 14:37] MED LIST changes: +ACET-1158 PO; +CEPH-510 PO
[2022-07-29] MEDS ORDERED: HYDROcodone-ACET 10/325MG TAB PO ONE (15:00)
[2022-07-29 15:19] LABS: Basophils # (auto) 0.1 10 ^3/uL (0-0.2); Basophils % (auto) 1.2 % (0.0-2.0); Eosinophils # (auto) 0.1 10 ^3/uL (0-0.8); Eosinophils % (auto) 1.4 % (0.0-7.0); Hematocrit 47.9 % (41.0-53.0); Hemoglobin 15.9 g/dL (13.5-17.5); Lymphocytes # (auto) 2.5 10 ^3/uL (0.4-5.4); Lymphocytes % (auto) 23.9 % (10.0-50.0); Mean Corpuscular Hgb Conc. 33.1 g/dL (32.0-36.0); Mean Corpuscular Volume 81.4 fL (80.0-100.0); Monocytes # (auto) 0.7 10 ^3/uL (0-1.3); Monocytes % (auto) 6.7 % (0.0-12.0); Neutrophils % (auto) 66.8 % (37.0-80.0); Nucleated Red Blood Cells % 0.1 %; Red Blood Cells 5.88 10^6/uL (4.5-5.90); Red Cell Distribution Width 14.9 % (11.8-14.3); White Blood Cell 10.5 10^3/uL (4.4-10.8)
[2022-07-29 15:35] LABS: Albumin 3.6 g/dL (3.4-5.0); Calcium 8.8 mg/dL (8.5-10.1); Potassium 4.3 mmol/L (3.5-5.1)
[2022-07-29 15:39] LABS: BUN/Creatinine Ratio 22.6 (10.0-20.0); Bilirubin, Total 0.9 mg/dL (0.2-1.0); Total Protein 7.2 g/dL (6.4-8.2)
[2022-07-29 18:05] LABS: Urine Bacteria NONE SEEN /hpf (None Seen); Urine Blood Negative /uL (Negative); Urine Specific Gravity 1.026 (1.001-1.035); Urine WBC 4 /hpf (0 - 3)
[2022-07-30] MEDS ORDERED: HYDROcodone-ACET 5/325MG TAB PO PRN (02:30)
[2022-07-30] MEDS ORDERED: ACETAMINOPHEN 325 MG TAB PO PRN (02:30)
[2022-07-30] MEDS ORDERED: MORPHINE SULFATE INJ 2 MG/ml SYRG IV PRN ×2 (02:30→03:00)
[2022-07-30] MEDS ORDERED: DOCUSATE SOD 100 MG CAP PO PRN (02:30)
[2022-07-30] MEDS ORDERED: ONDANSETRON HCL 4 MG/2 ML VIAL IV PRN (02:30)
[2022-07-30] MEDS ORDERED: NITROGLYCERIN 0.4 MG SL TAB SL PRN (03:00)
[2022-07-30] MEDS ORDERED: hydrALAZINE HCL 20 MG/ML VL IV PRN (03:45)
[2022-07-30 04:32] LABS: Basophils # (auto) 0.1 10 ^3/uL (0-0.2); Basophils % (auto) 1.1 % (0.0-2.0); Eosinophils # (auto) 0.2 10 ^3/uL (0-0.8); Eosinophils % (auto) 2.1 % (0.0-7.0); Hemoglobin 16.3 g/dL (13.5-17.5); Lymphocytes # (auto) 3.3 10 ^3/uL (0.4-5.4); Lymphocytes % (auto) 30.3 % (10.0-50.0); Mean Corpuscular Hemoglobin 27.3 pg (28.0-32.0); Mean Corpuscular Hgb Conc. 33.3 g/dL (32.0-36.0); Mean Corpuscular Volume 81.8 fL (80.0-100.0); Monocytes # (auto) 0.9 10 ^3/uL (0-1.3); Monocytes % (auto) 7.8 % (0.0-12.0); Neutrophils # (auto) 6.4 10 ^3/uL (1.6-8.6); Neutrophils % (auto) 58.7 % (37.0-80.0); Nucleated Red Blood Cells % 0.2 %; Red Blood Cells 5.99 10^6/uL (4.5-5.90); Red Cell Distribution Width 14.8 % (11.8-14.3); White Blood Cell 10.9 10^3/uL (4.4-10.8)
[2022-07-30 04:51] LABS: Albumin 3.6 g/dL (3.4-5.0); Calcium 8.7 mg/dL (8.5-10.1); Potassium 4.7 mmol/L (3.5-5.1)
[2022-07-30 04:55] LABS: BUN/Creatinine Ratio 20.5 (10.0-20.0); Bilirubin, Total 1.2 mg/dL (0.2-1.0); Total Protein 7.5 g/dL (6.4-8.2)
[2022-07-30] MEDS: SODIUM CHLOR 0.9% PF (SALINE LOCK) 10ML VIAL/SYR IV SCH ×2 (06:00→13:27)
[2022-07-30] MEDS ORDERED: ATOR40TA52 PO (06:49)
[2022-07-30] MEDS ORDERED: ASPI-325 PO (06:49)
[2022-07-30] MEDS ORDERED: MET25T PO (06:49)
[2022-07-30] MEDS ORDERED: PANT40T PO (06:49)
[2022-07-30 09:00] VITALS: BP 135/87
[2022-07-30] MEDS ORDERED: FAMOTIDINE (10MG/ML) 2ML VL IV SCH (10:00)
[2022-07-30] MEDS ORDERED: CLOPIDOGREL BISULFATE 75 MG TAB PO SCH (10:00)
[2022-07-30] MEDS ORDERED: ASPirin 81 mg TAB PO SCH (10:00)
[2022-07-30] MEDS ORDERED: CAR3125T OR ×3 (12:48→12:56)
[2022-07-30 13:00] VITALS: BP 114/84
[2022-07-30] MEDS ORDERED: ATORVASTATIN 20 MG TAB PO SCH (22:00)
== END 2022-07-30 14:20 | disposition home or self-care (01) | DRG 194 ==
LOC: ER 14:37 → TELE 07-30 02:56 → TELE-WESTW 07-30 05:57
PROVIDERS: ADMIT Nurse Practitioner Family; ATTEND Internal Medicine Pulmonary Disease
DX: I11.0 Hypertensive heart disease with heart failure (principal); I21.A1 Myocardial infarction type 2; R07.89 Other chest pain; I50.21 Acute systolic (congestive) heart failure; E66.01 Morbid (severe) obesity due to excess calories; E78.5 Hyperlipidemia, unspecified; F41.9 Anxiety disorder, unspecified; I25.10 Atherosclerotic heart disease of native coronary artery without angina pectoris; I48.92 Unspecified atrial flutter; Z68.36 Body mass index [BMI] 36.0-36.9, adult; Z79.82 Long term (current) use of aspirin; Z83.3 Family history of diabetes mellitus; Z91.199 Patient's noncompliance with other medical treatment and regimen due to unspecified reason
CPT/HCPCS: 36415; 71046; 80053; 81001; 83880; 84484; 85025; G0378; J3490

== ENCOUNTER 2022-12-21 06:07 | Inpatient (IN) | payer OTHER ==
[~2022-12-21] VITALS: Ht 165.1 cm; Wt 109.0 kg
[~2022-12-21 06:07] MED LIST changes: -ACET-1158 PO; +ACET500T58 PO; +ASPI-325 PO; -ASPI1TAB20 PO; -ATOR20TA50 PO; +ATOR40TA52 PO; +CAR3125T OR; -CEPH-510 PO; -METO25TA5 PO; +PANT40T PO; -PANT40TA2 PO
[2022-12-21 07:00] LABS: Basophils # (auto) 0.1 10 ^3/uL (0-0.2); Basophils % (auto) 0.9 % (0.0-2.0); Eosinophils # (auto) 0.3 10 ^3/uL (0-0.8); Eosinophils % (auto) 2.4 % (0.0-7.0); Hematocrit 49.2 % (41.0-53.0); Hemoglobin 16.2 g/dL (13.5-17.5); Lymphocytes # (auto) 3.3 10 ^3/uL (0.4-5.4); Lymphocytes % (auto) 30.4 % (10.0-50.0); Mean Corpuscular Hemoglobin 27.3 pg (28.0-32.0); Mean Corpuscular Hgb Conc. 32.9 g/dL (32.0-36.0); Monocytes # (auto) 1.1 10 ^3/uL (0-1.3); Monocytes % (auto) 9.8 % (0.0-12.0); Neutrophils # (auto) 6.1 10 ^3/uL (1.6-8.6); Neutrophils % (auto) 56.5 % (37.0-80.0); Nucleated Red Blood Cells % 0.2 %; Red Blood Cells 5.93 10^6/uL (4.5-5.90); Red Cell Distribution Width 15.5 % (11.8-14.3); White Blood Cell 10.8 10^3/uL (4.4-10.8)
[2022-12-21 07:07] LABS: INR 1.04 (0.9-1.15); Partial Thromboplastin Time 27.3 SEC (24.5-34.5); Prothrombin Time 10.9 sec (9.3-11.8)
[2022-12-21] MEDS ORDERED: ASPirin-EC 325mg tab PO ONE (07:15)
[2022-12-21 07:40] VITALS: O2SAT 9
[2022-12-21] MEDS ORDERED: NITROGLYCERIN 2% OINT 1GM PKG TD ONE (07:45)
[2022-12-21 08:36] LABS: Chloride 110 mmol/L (98-107); Sodium 137 mmol/L (136-145)
[2022-12-21 08:39] LABS: Calcium 8.4 mg/dL (8.7-10.4)
[2022-12-21 08:44] LABS: Alkaline Phosphatase 112 U/L (46-116); Glucose 147 mg/dL (74-106)
[2022-12-21] MEDS ORDERED: MORPHINE SULFATE INJ 2 MG/ml SYRG IV PRN ×2 (08:45→09:00)
[2022-12-21] MEDS ORDERED: hydrALAZINE HCL 20 MG/ML VL IV PRN (08:45)
[2022-12-21] MEDS ORDERED: DOCUSATE SOD 100 MG CAP PO PRN (08:45)
[2022-12-21] MEDS ORDERED: ONDANSETRON HCL 4 MG/2 ML VIAL IV PRN (08:45)
[2022-12-21] MEDS ORDERED: HYDROcodone-ACET 5/325MG TAB PO PRN (08:45)
[2022-12-21 08:46] LABS: Aspartate Aminotransferase 27 U/L (13-40); Bilirubin, Total 1.3 mg/dL (0.2-1.0)
[2022-12-21 08:47] LABS: Alanine Aminotransferase 26 U/L (7-40); BUN/Creatinine Ratio 23.8 (10.0-20.0); Blood Urea Nitrogen 25 mg/dL (9-23); Potassium 3.7 mmol/L (3.5-5.1)
[2022-12-21 08:58] LABS: Urine Bacteria FEW /hpf (None Seen); Urine Blood Negative /uL (Negative); Urine Clarity Clear (Clear); Urine Color Yellow (Yellow); Urine Mucus FEW (None Seen); Urine Protein, UAD 1+ (Negative); Urine Specific Gravity 1.024 (1.001-1.035); Urine WBC 15 /hpf (0 - 3); Urine pH 5.5 (5.0-8.0)
[2022-12-21] MEDS ORDERED: NITROGLYCERIN 0.4 MG SL TAB SL PRN (09:00)
[2022-12-21 09:04] LABS: Anion Gap 8 (5-15); Carbon Dioxide 19 mmol/L (20-30)
[2022-12-21] MEDS ORDERED: CLOPIDOGREL BISULFATE 75 MG TAB PO SCH (10:00)
[2022-12-21] MEDS ORDERED: ASPirin 81 mg TAB PO SCH (10:00)
[2022-12-21] MEDS: FAMOTIDINE (10MG/ML) 2ML VL IV SCH ×2 (10:14→21:55)
[2022-12-21] MEDS: CARVEDILOL 3.125 MG TAB PO SCH ×2 (10:14→21:54)
[2022-12-21] MEDS ORDERED: cefTRIAXone 1GM/50ML D5W 50 ML IV ONE (11:00)
[2022-12-21] MEDS: SODIUM CHLOR 0.9% PF (SALINE LOCK) 10ML VIAL/SYR IV SCH ×2 (14:03→21:55)
[2022-12-21] MEDS ORDERED: HEPARIN DRIP/D5W 100UNITS/ML 250 ML IV SCH (14:30)
[2022-12-21] MEDS ORDERED: HEPARIN SODIUM (PORCINE) 5000 UNITS/ML 1ML VIAL IV ONE (14:30)
[2022-12-21 17:04] VITALS: BP 116/78; PULSE 90; RESP 17; TEMP 98.9; O2SAT 95
[2022-12-21 20:00] VITALS: PULSE 92
[2022-12-21 20:07] VITALS: BP 127/91; PULSE 102; RESP 16; TEMP 98; O2SAT 98
[2022-12-21 21:38] LABS: INR 1.06 (0.9-1.15); Partial Thromboplastin Time 41.4 SEC (24.5-34.5); Prothrombin Time 11.1 sec (9.3-11.8)
[2022-12-21] MEDS: ATORVASTATIN 20 MG TAB PO SCH (21:53)
[2022-12-21 22:00] VITALS: BP 129/93; PULSE 91; RESP 18; TEMP 97.6; O2SAT 98
[2022-12-21] MEDS ORDERED: ATORVASTATIN 20 MG TAB PO SCH (22:00)
[2022-12-21] MEDS: HEPARIN DRIP/D5W 100UNITS/ML 250 ML IV SCH (22:15)
[2022-12-22] VITALS (8 sets, daily range): BP systolic 108–131; BP diastolic 69–101; PULSE 84–97; RESP 18–22; TEMP 97.4–97.9; O2SAT 95–98
[2022-12-22] MEDS: ACETAMINOPHEN 325 MG TAB PO PRN ×2 (04:13→19:36)
[2022-12-22] MEDS: SODIUM CHLOR 0.9% PF (SALINE LOCK) 10ML VIAL/SYR IV SCH ×3 (06:00→22:00)
[2022-12-22 06:57] LABS: Basophils # (auto) 0.1 10 ^3/uL (0-0.2); Basophils % (auto) 0.9 % (0.0-2.0); Eosinophils # (auto) 0.2 10 ^3/uL (0-0.8); Eosinophils % (auto) 2.3 % (0.0-7.0); Hematocrit 45.7 % (41.0-53.0); Hemoglobin 15.3 g/dL (13.5-17.5); Lymphocytes # (auto) 2.3 10 ^3/uL (0.4-5.4); Lymphocytes % (auto) 23.7 % (10.0-50.0); Mean Corpuscular Hemoglobin 27.6 pg (28.0-32.0); Mean Corpuscular Hgb Conc. 33.5 g/dL (32.0-36.0); Mean Corpuscular Volume 82.4 fL (80.0-100.0); Monocytes # (auto) 0.8 10 ^3/uL (0-1.3); Monocytes % (auto) 7.9 % (0.0-12.0); Neutrophils # (auto) 6.3 10 ^3/uL (1.6-8.6); Neutrophils % (auto) 65.2 % (37.0-80.0); Nucleated Red Blood Cells % 0.2 %; Red Blood Cells 5.55 10^6/uL (4.5-5.90); Red Cell Distribution Width 15.4 % (11.8-14.3); White Blood Cell 9.6 10^3/uL (4.4-10.8)
[2022-12-22 07:05] LABS: INR 1.08 (0.9-1.15); Partial Thromboplastin Time 56.4 SEC (24.5-34.5); Prothrombin Time 11.3 sec (9.3-11.8)
[2022-12-22 07:11] LABS: Alanine Aminotransferase 19 U/L (7-40); Albumin 3.9 g/dL (3.2-4.8); Alkaline Phosphatase 99 U/L (46-116); Anion Gap 5 (5-15); Aspartate Aminotransferase 26 U/L (13-40); BUN/Creatinine Ratio 18.3 (10.0-20.0); Bilirubin, Total 1.7 mg/dL (0.2-1.0); Blood Urea Nitrogen 19 mg/dL (9-23); Carbon Dioxide 26 mmol/L (20-30); Chloride 108 mmol/L (98-107); Cholesterol 164 mg/dL (< 200); Glucose 139 mg/dL (74-106); HDL Cholesterol 35 mg/dL (40-59); LDL Cholesterol 118 mg/dL (< 100); Potassium 4.5 mmol/L (3.5-5.1); Sodium 139 mmol/L (136-145); Total Protein 7.1 g/dL (5.7-8.2); Triglycerides 112 mg/dL (< 150)
[2022-12-22] MEDS ORDERED: cefTRIAXone 1GM/50ML D5W 50 ML IV SCH (09:00)
[2022-12-22] MEDS: CLOPIDOGREL BISULFATE 75 MG TAB PO SCH (09:43)
[2022-12-22] MEDS: ASPirin 81 mg TAB PO SCH (09:43)
[2022-12-22] MEDS: CARVEDILOL 3.125 MG TAB PO SCH ×2 (09:44→21:59)
[2022-12-22] MEDS: LISINOPRIL 5 MG TAB PO SCH (09:44)
[2022-12-22 10:00] LABS: Magnesium 2.2 mg/dL (1.6-2.6)
[2022-12-22] MEDS: FAMOTIDINE (10MG/ML) 2ML VL IV SCH ×2 (10:00→21:59)
[2022-12-22 13:59] LABS: INR 1.08 (0.9-1.15); Partial Thromboplastin Time 58.9 SEC (24.5-34.5); Prothrombin Time 11.3 sec (9.3-11.8)
[2022-12-22 19:31] LABS: INR 1.07 (0.9-1.15); Partial Thromboplastin Time 54.1 SEC (24.5-34.5); Prothrombin Time 11.2 sec (9.3-11.8)
[2022-12-22] MEDS: HEPARIN DRIP/D5W 100UNITS/ML 250 ML IV SCH (19:46)
[2022-12-22] MEDS: ATORVASTATIN 20 MG TAB PO SCH (21:58)
[2022-12-23 05:00] VITALS: BP 107/82; PULSE 82; RESP 18; TEMP 98; O2SAT 97
[2022-12-23] MEDS: SODIUM CHLOR 0.9% PF (SALINE LOCK) 10ML VIAL/SYR IV SCH (06:00)
[2022-12-23 07:00] LABS: Basophils # (auto) 0.1 10 ^3/uL (0-0.2); Basophils % (auto) 0.8 % (0.0-2.0); Eosinophils # (auto) 0.3 10 ^3/uL (0-0.8); Eosinophils % (auto) 3.1 % (0.0-7.0); Hematocrit 47.1 % (41.0-53.0); Hemoglobin 15.2 g/dL (13.5-17.5); Lymphocytes # (auto) 2.7 10 ^3/uL (0.4-5.4); Lymphocytes % (auto) 30.9 % (10.0-50.0); Mean Corpuscular Hemoglobin 27.5 pg (28.0-32.0); Mean Corpuscular Hgb Conc. 32.2 g/dL (32.0-36.0); Mean Corpuscular Volume 85.2 fL (80.0-100.0); Monocytes # (auto) 0.7 10 ^3/uL (0-1.3); Monocytes % (auto) 8.5 % (0.0-12.0); Neutrophils % (auto) 56.7 % (37.0-80.0); Nucleated Red Blood Cells % 0.1 %; Red Blood Cells 5.53 10^6/uL (4.5-5.90); Red Cell Distribution Width 15.4 % (11.8-14.3); White Blood Cell 8.9 10^3/uL (4.4-10.8)
[2022-12-23 07:14] LABS: Alanine Aminotransferase 19 U/L (7-40); Albumin 3.7 g/dL (3.2-4.8); Alkaline Phosphatase 105 U/L (46-116); Anion Gap 7 (5-15); Aspartate Aminotransferase 15 U/L (13-40); BUN/Creatinine Ratio 20.8 (10.0-20.0); Blood Urea Nitrogen 21 mg/dL (9-23); Calcium 8.8 mg/dL (8.7-10.4); Carbon Dioxide 27 mmol/L (20-30); Chloride 104 mmol/L (98-107); Glucose 111 mg/dL (74-106); Magnesium 1.9 mg/dL (1.6-2.6); Potassium 4.2 mmol/L (3.5-5.1); Sodium 138 mmol/L (136-145)
[2022-12-23 07:15] LABS: Bilirubin, Total 1.3 mg/dL (0.2-1.0); Total Protein 6.3 g/dL (5.7-8.2)
[2022-12-23 08:30] VITALS: PULSE 80; PULSE 81; RESP 14; O2SAT 100
[2022-12-23 09:00] VITALS: BP 115/79; PULSE 80; RESP 14; TEMP 97.5; O2SAT 100
[2022-12-23] MEDS: ASPirin 81 mg TAB PO SCH (09:53)
[2022-12-23] MEDS: LISINOPRIL 5 MG TAB PO SCH (09:54)
[2022-12-23] MEDS: CARVEDILOL 3.125 MG TAB PO SCH (09:54)
[2022-12-23] MEDS: CLOPIDOGREL BISULFATE 75 MG TAB PO SCH (09:55)
[2022-12-23] MEDS ORDERED: FAMOTIDINE 20 MG TAB PO SCH (10:00)
[2022-12-23] MEDS ORDERED: CAR3125T PO (10:07)
[2022-12-23 11:58] VITALS: BP 115/79; PULSE 80; TEMP 36.4
== END 2022-12-23 12:52 | disposition home or self-care (01) | DRG 190 ==
LOC: ER 06:07 → TELE 09:02 → TELE-CENTR 16:21
PROVIDERS: ADMIT Internal Medicine; ATTEND Student in an Organized Health Care Education/Training Program
DX: I21.29 ST elevation (STEMI) myocardial infarction involving other sites (principal); I47.20 Ventricular tachycardia, unspecified; I11.0 Hypertensive heart disease with heart failure; I50.22 Chronic systolic (congestive) heart failure; E66.01 Morbid (severe) obesity due to excess calories; I25.5 Ischemic cardiomyopathy; N39.0 Urinary tract infection, site not specified; I25.10 Atherosclerotic heart disease of native coronary artery without angina pectoris; E78.5 Hyperlipidemia, unspecified; R73.03 Prediabetes; Z53.20 Procedure and treatment not carried out because of patient's decision for unspecified reasons; Z68.41 Body mass index [BMI] 40.0-44.9, adult; Z83.3 Family history of diabetes mellitus; Z95.5 Presence of coronary angioplasty implant and graft
CPT/HCPCS: 36415; 71045; 80053; 80061; 81001; 83036; 83735; 83880; 84443; 84484; 85025; 85610; 85730; 87086; 93005; 93306; 96365; 96367; 96375; G0378; J0696; J3490